=== PATIENT | male | born 1985 | race Caucasian/White ===

== ENCOUNTER 2019-07-30 21:36 | Emergency (ER) | payer OTHER ==
[~2019-07-30] VITALS: Ht 180.3 cm; Wt 79.4 kg
--- NOTE | ~2019-07-30 | EMS ---
[address] [address] EMS Patient Care Report Name: TORY ALLISON Room #: REG NETTA Servin#: [id number] Admission: 07/30/19 Attend Phys: Discharge: Date of : [birth year] Report #: [id number] THIS REPORT FOR: //name// Report Transmitted: 07/30/2019 22:50 EMS Care Summary [place], [place]/[facility] Incident [id number] @ 07/30/2019 21:05 Incident Location [address] [place] [address] Patient TORY ALLISON Male, 34 Years 1985 Patient Address [address] [place] [address] Patient History Substance Abuse,Anxiety, Patient Allergies Sulfa, Patient Medications Clonazepam, Chief Complaint OXY OD Disposition Transported No Lights/[place] Dispatch Reason Overdose/Poisoning/Ingestion Transported To [facility] Narrative PT FOUND LYING ON FLOOR. [facility] [employer] AND [place] [employer] ON SCENE. BYSTANDERS REPORT PT IS A KNOWN USER OF OXY AND THAT HE OVERDOSES ON IT. BYSTANDERS STATE THAT THEY THINK PT TOOK IT ABOUT 30 MINUTES AGO. ON ARRIVAL, FD HAD PT WITH IGEL DUE TO AGONAL RESPIRATIONS. PT LOC IMPROVED AFTER TX WITH NARCAN AND IGEL REMOVED WHEN [facility] [address] [place] [address] EMS Patient Care Report Name: TORY ALLISON Room #: REG NETTA Servin#: [id number] Admission: 07/30/19 Attend Phys: Discharge: Date of : 89 Report #: [id number] PT STARTED GAGGING ON AIRWAY DEVICE. LOC IMPROVED. NO FURTHER CHANGES ENROUTE. TRANSPORTED WITHOUT FURTHER INCIDENT. Initial Vitals @21:17P: 110,EtCO2: 75, @21:22P: 107,R: 14,CO: 3,EtCO2: 53,SpO2: 98, @21:16P: 114,R: 6,BP: 148/78,Pain: 0/10,GCS: 3,Glucose: 186,SpO2: 100,Revised Trauma: 6,[place] Suspected: false @21:27P: 89,R: 31,GCS: 14,EtCO2: 40, Assessments @21:14MENTAL:Unresponsive,SKIN:Diaphoresis,HEENT:LUNG SOUNDS:General: No Abnormalities,ABDOMEN:General: No Abnormalities,PELVIS//GI:EXTREMITIES:Left Arm: No Abnormalities,Right Arm: No Abnormalities,Left Leg: No Abnormalities,Right Leg: No Abnormalities,PULSE:NEURO: Impression Overdose - Unspecified Procedures @21:14ALS AssessmentResponse: UnchangedSucceeded@PTAiGEL Complications: None,Response: UnchangedSucceeded@21:26Narcan - 2 Milligrams (mg) - Intravenous (IV)Response: Improved@21:25Saline Lock 10cc (18 ga) Site: Hand-LeftResponse: UnchangedSucceeded@PTAOxygen FlowRate: 25 Device: Bag Valve Mask (BVM) Response: UnchangedSucceeded@21:30Suction Response: ImprovedSucceeded Timeline LEATHER TANNER,iGEL Complications: None,,Response: UnchangedSucceeded, LEATHER TANNER,Oxygen FlowRate: 25 Device: Bag Valve Mask (BVM) Response: UnchangedSucceeded, 21:03,Call Received 21:03,Dispatch Notified 21:05,Dispatched 21:07,En Route 21:12,On Scene 21:14,At Patient 21:14,ALS Assessment,Response: UnchangedSucceeded, 21:16,BP: 148/78 M,PULSE: 114,RR: 6 R,SPO2: 100 Ox,ETCO2: ,B,PAIN: 0,GCS: 3, 21:17,BP: / M,PULSE: 110,RR: R,SPO2: Ox,ETCO2: 75 ,BG: ,PAIN: ,GCS: , 21:22,BP: / M,PULSE: 107,RR: 14 R,SPO2: 98 Ox,ETCO2: 53 ,BG: ,PAIN: ,GCS: , 21:25,Saline Lock 10cc 18 ga Site: Hand-Left,Response: UnchangedSucceeded, 21:26,Narcan - 2 Milligrams (mg) - Intravenous (IV),Response: Improved 21:27,BP: / M,PULSE: 89,RR: 31 R,SPO2: Ox,ETCO2: 40 ,BG: ,PAIN: ,GCS: 14, 21:27,Depart Scene 21:30,Suction Response: ImprovedSucceeded, [address] [address] EMS Patient Care Report Name: TORY ALLISON Room #: NARGIS Servin#: [id number] Admission: 07/30/19 Attend Phys: Discharge: Date of : [birth year] Report #: [id number] 21:33,At Destination 22:14,Call Closed Disclaimer v1.1 Copyright 2019 [employer] This EMS Care Summary contains data elements from the applicable legal record (which may be displayed differently). It is designed to provide pertinent information for the following purposes: continuity of care, clinical quality, and state data reporting. The complete legal record is available to ED staff and administrators of the receiving hospital in [employer]'s Patient Tracker. All data is provided "as is."
[2019-07-30] MEDS ORDERED: NARCAN4 MG NARES (22:49)
[2019-07-30 23:47] VITALS: BP 131/103
== END 2019-07-30 23:52 | disposition home or self-care (01) ==
LOC: ER 21:36
DX: T40.2X1A Poisoning by other opioids, accidental (unintentional), initial encounter (principal); F17.210 Nicotine dependence, cigarettes, uncomplicated; Y92.89 Other specified places as the place of occurrence of the external cause

== ENCOUNTER 2019-09-14 20:08 | Emergency (ER) | payer OTHER ==
[~2019-09-14] VITALS: Ht 180.3 cm; Wt 77.1 kg
[~2019-09-14 20:08] MED LIST: NARCAN4 MG NARES
[2019-09-14 20:54] LABS: ABSOLUTE NEUTROPHILS 6.3 thou/uL (1.4-8.2); BASOPHILS 0.6 % (0.0-2.0); HEMOGLOBIN 15.5 gm/dL (14.0-18.0); LYMPHOCYTES 16.6 % (24.0-44.0); MCH 30.2 pg (26.0-34.0); MCHC 33.6 g/dL (28.0-37.0); MCV 89.8 fL (80.0-100.0); MONOCYTES 6.5 % (1.0-8.0); PLATELET COUNT 241 thou/uL (150-400); POLYS 72.3 % (36.0-66.0); RBC 5.12 mil/uL (4.50-6.00); RDW 12.7 % (10.5-14.5); WBC 8.8 thou/uL (4.0-11.0)
[2019-09-14 21:07] LABS: CALCIUM 9.9 mg/dL (8.5-10.1); POTASSIUM 3.5 mmol/L (3.5-5.1)
[2019-09-14 21:14] LABS: ALBUMIN 4.6 g/dL (3.4-5.0); TOTAL BILIRUBIN 0.4 mg/dL (<0.1-1.0); TOTAL PROTEIN 7.9 g/dL (6.4-8.2)
[2019-09-14 21:40] LABS: URINE BILIRUBIN NEGATIVE (Negative); URINE BLOOD NEGATIVE (Negative); URINE CLARITY CLEAR; URINE COLOR YELLOW; URINE GLUCOSE-RANDOM* NEGATIVE (Negative); URINE KETONES NEGATIVE (Negative); URINE LEUKOCYTES-REFLEX NEGATIVE (Negative); URINE NITRITE-REFLEX NEGATIVE (Negative); URINE PROTEIN (DIPSTICK) NEGATIVE (Negative); URINE SPECIFIC GRAVITY <= 1.005 (1.005-1.035); URINE UROBILINOGEN 0.2 E.U./dl (0.2-1.0)
[2019-09-14 21:48] LABS: AMP/METHAMP POSITIVE (Negative); BARBITURATES Negative (Negative); BENZODIAZEPINES Negative (Negative); COCAINE Negative (Negative); METHADONE Negative (Negative); OPIATES Negative (Negative); PCP Negative (Negative)
[2019-09-14 22:41] VITALS: BP 136/77
== END 2019-09-14 22:42 | disposition home or self-care (01) ==
LOC: ER 20:08
PROVIDERS: Emergency Medicine
DX: R10.84 Generalized abdominal pain (principal); R10.30 Lower abdominal pain, unspecified; R33.9 Retention of urine, unspecified; F17.210 Nicotine dependence, cigarettes, uncomplicated; Z88.2 Allergy status to sulfonamides; Z88.8 Allergy status to other drugs, medicaments and biological substances

== ENCOUNTER 2020-08-05 14:49 | Emergency (ER) | payer OTHER ==
[~2020-08-05] VITALS: Ht 182.9 cm; Wt 81.7 kg
[2020-08-05 15:19] VITALS: BP 170/100
[2020-08-05] MEDS ORDERED: TEMAZEPAM30 MG PO (15:42)
[2020-08-05] MEDS ORDERED: CLONAZEPAM 1 MG1 M1 PO (15:42)
[2020-08-05] MEDS ORDERED: AMPHETAMINE SAL30 MG PO (15:42)
[2020-08-05] MEDS ORDERED: NARCAN4 MG NARES (17:29)
[2020-08-05 18:14] LABS: AMP/METHAMP Negative (Negative); BARBITURATES Negative (Negative); BENZODIAZEPINES POSITIVE (Negative); COCAINE Negative (Negative); METHADONE Negative (Negative); OPIATES Negative (Negative); PCP Negative (Negative)
== END 2020-08-05 18:25 | disposition home or self-care (01) ==
LOC: ER 14:49
PROVIDERS: Student in an Organized Health Care Education/Training Program
DX: T40.2X1A Poisoning by other opioids, accidental (unintentional), initial encounter (principal); R40.20 Unspecified coma; R45.1 Restlessness and agitation; R32 Unspecified urinary incontinence; F17.210 Nicotine dependence, cigarettes, uncomplicated; Z79.899 Other long term (current) drug therapy; Z88.2 Allergy status to sulfonamides; Y92.89 Other specified places as the place of occurrence of the external cause

== ENCOUNTER 2020-09-05 19:09 | Emergency (ER) | payer OTHER ==
[~2020-09-05] VITALS: Ht 180.3 cm; Wt 88.5 kg
--- NOTE | ~2020-09-05 | EMS ---
[address] [address] EMS Patient Care Report Name: TORY ALLISON Room #: REG NETTA Servin#: [id number] Admission: 09/05/20 Attend Phys: Discharge: Date of : [birth year] Report #: [id number] THIS REPORT FOR: //name// Report Transmitted: 09/05/2020 18:47 EMS Care Summary [place], [place]/[facility] Incident [id number] @ 09/05/2020 18:50 Incident Location [address] [place], [place] [id number] Patient TORY ALLISON Male, 35 Years 1985 Patient Address [address] [place] [address] Patient History IV Drug Use/Abuse, Patient Allergies No known allergies, Patient Medications None Reported, Chief Complaint OVERDOSE Disposition Transported Lights/[place] Dispatch Reason Overdose/Poisoning/Ingestion Transported To [facility] Narrative RESPONDED TO CARDIAC ARREST AT HOME. CPR IN PROGRESS PER DISPATCH NOTES. UPON ARRIVAL PT FOUND UNRESPONSIVE ON BEDROOM FLOOR. PT IS CYANOTIC, SWEATY AND SNORING. PUPILS ARE PINPOINT AND PT HAS PULSE. VITALS AND 3 LEAD OBTAINED. PT GIRLFRIEND ON SCENE REPORTS PT TAKE FENTANYL AND OXYCODONE RECREATIONALLY. PT [address] [address] EMS Patient Care Report Name: TORY ALLISON Room #: REG NETTA Servin#: [id number] Admission: 09/05/20 Attend Phys: Discharge: Date of : [birth year] Report #: [id number] GIVEN NARCAN IN AND GIVEN OXYGEN VIA BVM AT 15 LPM. 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 IV ATTEMPTED EN ROUTE BUT PT BECAME COMBATIVE AND WOKE UP. PT IS CONFUSED AND GRUNTING BUT BECAME MORE CALM UPON ARRIVAL AT HOSPITAL. PT ADMITS TO USING FENTANYL ORALLY. PT SCOOTED TO BED AND HANDRAILS UP. REPORT GIVEN TO NURSE. Initial Vitals @18:56P: 100, @18:57P: 75,R: 10,BP: 139/97, @19:02P: 80,R: 20,BP: 138/76,Pain: 0/10,GCS: 13,SpO2: 90,Revised Trauma: 12, Assessments @18:56MENTAL:Unresponsive,SKIN:Cyanotic,Diaphoresis,HEENT:Eyes: Left Pupil: 2-mm,Eyes: Left: Constricted,Eyes: Right: Constricted,Eyes: Right Pupil: 2-mm,Head/Face: No Abnormalities,Neck/Airway: No Abnormalities,LUNG SOUNDS:General: No Abnormalities,Left Upper: No Abnormalities,Right Upper: No Abnormalities,Left Lower: No Abnormalities,Right Lower: No Abnormalities,ABDOMEN:General: No Abnormalities,Left Upper: No Abnormalities,Right Upper: No Abnormalities,Left Lower: No Abnormalities,Right Lower: No Abnormalities,PELVIS//GI:No Abnormalities,EXTREMITIES:PULSE:NEURO:No Abnormalities,@19:05MENTAL:Combative,Confused,SKIN:Cyanotic,Diaphoresis,HEENT:Ey es: Left: Constricted,Eyes: Right: Constricted,Head/Face: No Abnormalities,Neck/Airway: No Abnormalities,LUNG SOUNDS:General: No Abnormalities,Left Upper: No Abnormalities,Right Upper: No Abnormalities,Left Lower: No Abnormalities,Right Lower: No Abnormalities,ABDOMEN:General: No Abnormalities,Left Upper: No Abnormalities,Right Upper: No Abnormalities,Left Lower: No Abnormalities,Right Lower: No Abnormalities,PELVIS//GI:No Abnormalities,EXTREMITIES:Left Arm: No Abnormalities,Right Arm: No Abnormalities,Left Leg: No Abnormalities,Right Leg: No Abnormalities,PULSE:NEURO:No Abnormalities, Impression Overdose - Other opioids Procedures @18:56ALS AssessmentResponse: UnchangedSucceeded@18:57Narcan - 2 Milligrams (mg) - IntranasalResponse: Improved@18:593-Lead ECGResponse: UnchangedSucceeded@18:58Oxygen FlowRate: 15 Device: Bag Valve Mask (BVM) Response: ImprovedSucceeded@18:59Saline Lock 0cc (20 ga) Site: Antecubital-LeftResponse: UnchangedSucceeded Timeline 18:48,Call Received 18:48,Dispatch Notified [address] [address] EMS Patient Care Report Name: TORY ALLISON Room #: REG NETTA Servin#: [id number] Admission: 09/05/20 Attend Phys: Discharge: Date of : 89 Report #: [id number] 18:50,Dispatched 18:50,En Route 18:53,On Scene 18:55,At Patient 18:56,ALS Assessment,Response: UnchangedSucceeded, 18:56,BP: / M,PULSE: 100,RR: R,SPO2: Ox,ETCO2: ,BG: ,PAIN: ,GCS: , 18:57,Narcan - 2 Milligrams (mg) - Intranasal,Response: Improved 18:57,BP: 139/97 M,PULSE: 75,RR: 10 R,SPO2: Ox,ETCO2: ,BG: ,PAIN: ,GCS: , 18:58,Oxygen FlowRate: 15 Device: Bag Valve Mask (BVM) Response: ImprovedSucceeded, 18:59,3-Lead ECG,Response: UnchangedSucceeded, 18:59,Saline Lock 0cc 20 ga Site: Antecubital-Left,Response: UnchangedSucceeded, 19:02,BP: 138/76 M,PULSE: 80,RR: 20 R,SPO2: 90 Ox,ETCO2: ,BG: ,PAIN: 0,GCS: 13, 19:03,Depart Scene 19:07,At Destination 19:17,Call Closed Disclaimer v1.1 Copyright 2020 [employer] This EMS Care Summary contains data elements from the applicable legal record (which may be displayed differently). It is designed to provide pertinent information for the following purposes: continuity of care, clinical quality, and state data reporting. The complete legal record is available to ED staff and administrators of the receiving hospital in [employer]'s Patient Tracker. All data is provided "as is."
[2020-09-05 19:09] VITALS: BP 170/101
[~2020-09-05 19:09] MED LIST changes: +AMPHETAMINE SAL30 MG PO; +CLONAZEPAM 1 MG1 M1 PO; +TEMAZEPAM30 MG PO
--- NOTE | 2020-09-05 19:30 | EKG ---
[facility] [place] [address] ELECTROCARDIOGRAM REPORT Name: TORY ALLISON Room #: PRE [facility]..#: [id number] Admission: Attend Phys: Discharge: Date of : [birth year] Report #: [id number] THIS REPORT FOR: cc: TREVOR - Veena family physician/PCP TREVOR - Veena family physician/PCP Juan Bahena MD [facility] ~ THIS REPORT FOR: //name// 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
== END 2020-09-05 20:05 | disposition home or self-care (01) ==
LOC: ER 19:09
DX: T40.411A Poisoning by fentanyl or fentanyl analogs, accidental (unintentional), initial encounter (principal); R40.20 Unspecified coma; R51.9 Headache, unspecified; R68.83 Chills (without fever); F17.210 Nicotine dependence, cigarettes, uncomplicated; Z98.890 Other specified postprocedural states; Z79.899 Other long term (current) drug therapy; Z88.2 Allergy status to sulfonamides; Y92.092 Bedroom in other non-institutional residence as the place of occurrence of the external cause

== ENCOUNTER 2021-02-07 18:49 | Emergency (ER) | payer OTHER ==
[~2021-02-07] VITALS: Ht 177.8 cm; Wt 68.0 kg
[2021-02-07 19:08] LABS: ABSOLUTE NEUTROPHILS 5.7 thou/uL (1.4-8.2); BASOPHILS 0.4 % (0.0-2.0); EOSINOPHILS 3.3 % (0.0-3.0); HEMATOCRIT 45.2 % (42.0-52.0); HEMOGLOBIN 15.3 gm/dL (14.0-18.0); LYMPHOCYTES 31.1 % (24.0-44.0); MCH 30.4 pg (26.0-34.0); MCV 89.6 fL (80.0-100.0); MONOCYTES 8.1 % (1.0-8.0); PLATELET COUNT 336 thou/uL (150-400); POLYS 57.1 % (36.0-66.0); RBC 5.04 mil/uL (4.50-6.00); RDW 13.7 % (10.5-14.5)
[2021-02-07 19:18] LABS: ANION GAP 15 mmol/L (7-16); BUN 15 mg/dL (7-18); CALCIUM 9.1 mg/dL (8.5-10.1); CHLORIDE 107 mmol/L (98-107); CO2 21 mmol/L (21-32); CREATININE 1.2 mg/dL (0.7-1.3); GLUCOSE 144 mg/dL (74-106); POTASSIUM 3.6 mmol/L (3.5-5.1); SODIUM 143 mmol/L (136-145)
[2021-02-07 19:23] LABS: ALBUMIN 4.3 g/dL (3.4-5.0); DIRECT BILIRUBIN < 0.1 mg/dL (<0.1-0.2); SGOT 14 U/L (15-37); SGPT 23 U/L (16-63); TOTAL BILIRUBIN 0.4 mg/dL (0.2-1.0)
[2021-02-07 19:24] VITALS: BP 161/93
--- NOTE | 2021-02-08 07:46 | EKG ---
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 : 1985 Requested By: Julia Edmondson Order Number: [id number] MD: Sulaiman Norris Measurements Intervals [place] Rate: 137 P: 54 [place]: 115 QRS: 45 QRSD: 91 T: 31 QT: 302 QTc: 456 Interpretive Statements Sinus tachycardia Minimal ST depression, inferior leads Compared to ECG 09/05/2020 19:18:07 ST (T wave) deviation now present Electronically Signed On 02-08-2021 7:46:11 CDT by Sulaiman Norris [email or web address] <ELECTRONICALLY SIGNED> By: Sulaiman Norris MD, LOCATED WITHIN [facility] 02/08/21 0746 1854 1854 Sulaiman Norris MD, FACC /EPI
== END 2021-02-07 19:24 | disposition left against medical advice (07) ==
LOC: ER 18:49
PROVIDERS: Emergency Medicine
DX: F11.10 Opioid abuse, uncomplicated (principal); R00.0 Tachycardia, unspecified; R53.83 Other fatigue; F17.210 Nicotine dependence, cigarettes, uncomplicated; Z79.899 Other long term (current) drug therapy; Z88.2 Allergy status to sulfonamides

== ENCOUNTER 2021-11-19 18:46 | Emergency (ER) | payer OTHER ==
[~2021-11-19] VITALS: Ht 177.8 cm; Wt 102.1 kg
[2021-11-19 20:47] VITALS: BP 144/98
== END 2021-11-19 20:51 | disposition home or self-care (01) ==
LOC: ER 18:46
DX: S01.01XA Laceration without foreign body of scalp, initial encounter (principal); F11.10 Opioid abuse, uncomplicated; F17.210 Nicotine dependence, cigarettes, uncomplicated; M54.2 Cervicalgia; Z98.890 Other specified postprocedural states; Z88.1 Allergy status to other antibiotic agents; Z88.2 Allergy status to sulfonamides; W10.8XXA Fall (on) (from) other stairs and steps, initial encounter; Y93.89 Activity, other specified; Y92.89 Other specified places as the place of occurrence of the external cause; Y99.8 Other external cause status

== ENCOUNTER 2021-11-26 07:55 | Emergency (ER) | payer OTHER ==
[~2021-11-26] VITALS: Ht 177.8 cm; Wt 102.1 kg
[2021-11-26 08:03] VITALS: BP 148/86
== END 2021-11-26 08:30 | disposition home or self-care (01) ==
LOC: ER 07:55
DX: S01.81XD Laceration without foreign body of other part of head, subsequent encounter (principal); Z48.02 Encounter for removal of sutures; Z79.899 Other long term (current) drug therapy; Z88.2 Allergy status to sulfonamides; F17.210 Nicotine dependence, cigarettes, uncomplicated; X58.XXXD Exposure to other specified factors, subsequent encounter